=== PATIENT | female | born 1940 | race Caucasian/White ===

== ENCOUNTER 2016-05-24 17:26 | Emergency (ER) | payer MEDICARE, MEDICAID ==
[~2016-05-24] VITALS: Ht 175.3 cm; Wt 95.3 kg
== END 2016-05-24 18:54 | disposition short-term general hospital (02) ==
LOC: RAD 17:26 → ER 17:26
DX: S06.0X9A Concussion with loss of consciousness of unspecified duration, initial encounter (principal); S50.312A Abrasion of left elbow, initial encounter; S50.311A Abrasion of right elbow, initial encounter; S16.1XXA Strain of muscle, fascia and tendon at neck level, initial encounter; W18.39XA Other fall on same level, initial encounter

== ENCOUNTER → 2016-06-22 | Outpatient (CLI) | payer MEDICARE, MEDICAID ==
[~2016-06-22] MED LIST: CRESTOR10 MG PO; CYMBALTA60 MG PO; FLUDROCORTISON0.1 MG PO; GLUCOPHAGE1000 MG PO; ISOPTO CARPINE15 M1 EYEBOTH; MESTINON60 MG PO; MOBIC15 MG PO; NORCO 325-5 MG1 TAB PO; PRILOSEC20 MG PO; REQUIP2 MG PO; SYNTHROID50 MCG PO; TRULICITY0.75 MG/0. SUBCUT; VITAMIN B122500 MCG PO; ZOFRAN8 MG PO
== END | disposition short-term general hospital (02) ==
LOC: CLNEUR 03:05
DX: E11.42 Type 2 diabetes mellitus with diabetic polyneuropathy (principal); R41.3 Other amnesia; G25.81 Restless legs syndrome; R26.89 Other abnormalities of gait and mobility

== ENCOUNTER 2016-08-05 17:47 | Emergency (ER) | payer MEDICARE, MEDICAID ==
[~2016-08-05] VITALS: Ht 175.3 cm; Wt 96.6 kg
[2016-08-05] MEDS ORDERED: CYMBALTA60 MG PO (18:23)
[2016-08-05] MEDS ORDERED: SYNTHROID50 MCG PO (18:24)
[2016-08-05] MEDS ORDERED: NORCO 325-5 MG1 TAB PO (18:24)
[2016-08-05] MEDS ORDERED: FLUDROCORTISON0.1 MG PO (18:24)
[2016-08-05] MEDS ORDERED: GLUCOPHAGE1000 MG PO (18:25)
[2016-08-05] MEDS ORDERED: MOBIC15 MG PO (18:25)
[2016-08-05] MEDS ORDERED: PRILOSEC20 MG PO (18:25)
[2016-08-05] MEDS ORDERED: ZOFRAN8 MG PO (18:26)
[2016-08-05] MEDS ORDERED: ISOPTO CARPINE15 M1 EYEBOTH (18:29)
[2016-08-05] MEDS ORDERED: REQUIP2 MG PO (18:31)
[2016-08-05] MEDS ORDERED: CRESTOR10 MG PO (18:31)
[2016-08-05] MEDS ORDERED: TRULICITY0.75 MG/0. SUBCUT (18:32)
[2016-08-05] MEDS ORDERED: VITAMIN B122500 MCG PO (18:33)
[2016-08-05] MEDS ORDERED: MESTINON60 MG PO (18:34)
== END 2016-08-05 20:03 | disposition short-term general hospital (02) ==
LOC: ER 17:47
DX: S00.03XA Contusion of scalp, initial encounter (principal); M54.2 Cervicalgia; D64.9 Anemia, unspecified; F41.9 Anxiety disorder, unspecified; W01.10XA Fall on same level from slipping, tripping and stumbling with subsequent striking against unspecified object, initial encounter